=== PATIENT | female | born 2000 | race African-American/Black ===

== ENCOUNTER 2024-04-30 20:44 | Emergency (ER) | payer OTHER ==
[~2024-04-30] VITALS: Ht 160 cm; Wt 65.0 kg
[2024-04-30 20:59] VITALS: O2SAT 97
[2024-04-30 21:00] VITALS: BP 120/87; PULSE 84; RESP 18; TEMP 36.8; O2SAT 99
[2024-04-30] MEDS ORDERED: METOCLOPRAMIDE HCL 10MG TABLET PO ONE (22:45)
[2024-04-30] MEDS ORDERED: ACETAMINOPHEN 500MG TABLET PO ONE (22:45)
[2024-05-01] MEDS: ACETAMINOPHEN 500MG TABLET PO NR (01:56)
[2024-05-01] MEDS: METOCLOPRAMIDE HCL 10MG TABLET PO NR (01:56)
[2024-05-01] MEDS ORDERED: NAPR-1176 MT (02:14)
== END 2024-05-01 02:58 | disposition home or self-care (01) ==
LOC: ER 20:58
DX: S09.8XXA Other specified injuries of head, initial encounter (principal); Z79.1 Long term (current) use of non-steroidal anti-inflammatories (NSAID); W18.39XA Other fall on same level, initial encounter; Y93.89 Activity, other specified; Y92.89 Other specified places as the place of occurrence of the external cause; Y99.8 Other external cause status
CPT/HCPCS: 99284; 70450; J8597